=== PATIENT | male | born 1945 | race Caucasian/White ===

== ENCOUNTER 2019-11-11 16:50 | Emergency (ER) | payer BC ==
[~2019-11-11] VITALS: Ht 177.8 cm; Wt 52.2 kg
[~2019-11-11 16:50] MED LIST: ATEN-168 PO; LOVA40TA75 PO; SYN50 PO
[2019-11-11 16:55] VITALS: BP_SYST 95
[2019-11-11 17:25] LABS: BASOPHILS # (AUTO) 0.1 K/uL (0.0-0.2); BASOPHILS % (AUTO) 0.7 % (0.0-2.0); EOSINOPHILS % (AUTO) 0.1 % (0.0-4.0); HEMOGLOBIN 12.2 g/dL (14.0-18.0); LYMPHOCYTES # (AUTO) 1.1 K/uL (1.0-5.5); LYMPHOCYTES % (AUTO) 13.5 % (20.5-51.5); MEAN CORPUSCULAR HEMOGLOBIN 32 pg (27-31); MEAN CORPUSCULAR HGB CONC 34 % (32-36); MEAN CORPUSCULAR VOLUME 96 fL (79.0-98.0); MONOCYTES # (AUTO) 0.4 K/uL (0.0-1.0); MONOCYTES % (AUTO) 5.4 % (1.7-9.3); NEUTROPHILS # (AUTO) 6.5 K/uL (1.8-7.7); NEUTROPHILS % (AUTO) 80.3 % (40.0-70.0); PLATELET COUNT (AUTO) 233 K/uL (130-430); RED BLOOD CELL COUNT(AUTO) 3.76 MIL/uL (4.2-6.2); RED CELL DISTRIBUTION WIDTH 15.4 % (9.0-15.0); WHITE BLOOD COUNT (AUTO) 8.2 K/uL (4.8-10.8)
[2019-11-11 17:36] LABS: ALANINE AMINOTRANSFERASE 45 U/L (12-78); ALBUMIN 3.4 g/dL (3.4-4.8); ASPARTATE AMINOTRANSFERASE 38 U/L (10-37); CHLORIDE 108 mmol/L (98-107); CREATININE 1.54 mg/dL (0.55-1.30); GLUCOSE 113 mg/dL (70-99); POTASSIUM 3.8 mmol/L (3.5-5.1); SODIUM SERUM 141 mmol/L (136-145); TOTAL BILIRUBIN 0.4 mg/dL (0.0-1.0); UREA NITROGEN, BLOOD 37 mg/dL (8-21)
[2019-11-11 17:43] LABS: ANION GAP 11 (5-15)
[2019-11-11 18:35] VITALS: BP_SYST 108
== END 2019-11-11 18:36 | disposition home or self-care (01) ==
LOC: SED 16:50
DX: R53.1 Weakness (principal); I10 Essential (primary) hypertension; Z88.2 Allergy status to sulfonamides; Z95.828 Presence of other vascular implants and grafts
CPT/HCPCS: 36415; 80053; 82550-TC; 84484; 85025; 93005; 99284

== ENCOUNTER 2020-03-10 17:08 | Emergency (ER) | payer BC ==
[~2020-03-10] VITALS: Ht 177.8 cm; Wt 49.9 kg
[2020-03-10 17:19] VITALS: BP_SYST 159
--- NOTE | 2020-03-10 17:19 | NUR ---
PT BIB SPOUSE FOR MEDICAL CLEARANCE FOR CAROLYNRICHARD JESSICA. PT RESTING QUIETLY AWAITING CLEARANCE. FAMILY AT BEDSIDE.
--- NOTE | 2020-03-10 17:40 | NUR ---
ER at bedside examining patient.
[2020-03-10 17:44] LABS: BASOPHILS # (AUTO) 0.1 K/uL (0.0-0.2); EOSINOPHILS # (AUTO) 0.1 K/uL (0.0-0.4); EOSINOPHILS % (AUTO) 0.8 % (0.0-4.0); HEMATOCRIT 37.6 % (36-54); HEMOGLOBIN 12.5 g/dL (14.0-18.0); LYMPHOCYTES # (AUTO) 1.8 K/uL (1.0-5.5); LYMPHOCYTES % (AUTO) 24.9 % (20.5-51.5); MEAN CORPUSCULAR HEMOGLOBIN 33 pg (27-31); MEAN CORPUSCULAR HGB CONC 33 % (32-36); MEAN CORPUSCULAR VOLUME 101 fL (79.0-98.0); MONOCYTES # (AUTO) 0.6 K/uL (0.0-1.0); MONOCYTES % (AUTO) 7.4 % (1.7-9.3); NEUTROPHILS # (AUTO) 4.9 K/uL (1.8-7.7); NEUTROPHILS % (AUTO) 65.9 % (40.0-70.0); PLATELET COUNT (AUTO) 262 K/uL (130-430); RED BLOOD CELL COUNT(AUTO) 3.74 MIL/uL (4.2-6.2); RED CELL DISTRIBUTION WIDTH 14.7 % (9.0-15.0); WHITE BLOOD COUNT (AUTO) 7.4 K/uL (4.8-10.8)
--- NOTE | 2020-03-10 17:45 | NUR ---
MRSA AND COVID TEST OBTAINED AND SENT TO LAB.
--- NOTE | 2020-03-10 17:48 | NUR ---
Patient to ER bed 03 to gown for evaluation. Side rails up.
[2020-03-10 18:00] LABS: ANION GAP 12 (5-15); CALCIUM 9.3 mg/dL (8.4-11.0); CHLORIDE 105 mmol/L (98-107); CREATININE 1.05 mg/dL (0.55-1.30); GLUCOSE 89 mg/dL (70-99); POTASSIUM 3.3 mmol/L (3.5-5.1); SODIUM SERUM 141 mmol/L (136-145); UREA NITROGEN, BLOOD 22 mg/dL (8-21)
[2020-03-10 18:13] LABS: ALANINE AMINOTRANSFERASE 31 U/L (12-78); ALBUMIN 3.6 g/dL (3.4-4.8); ASPARTATE AMINOTRANSFERASE 36 U/L (10-37); TOTAL BILIRUBIN 0.4 mg/dL (0.0-1.0)
[2020-03-10 18:14] LABS: ACETAMINOPHEN < 1 ug/mL (1-30); ALCOHOL, BLOOD < 3 mg/dL (<10)
[2020-03-10 18:29] LABS: CHOLESTEROL 189 mg/dL (<200); HDL CHOLESTEROL 70 mg/dL (>45); LDL CHOLESTEROL 99 mg/dL (<100); TRIGLYCERIDES 109 mg/dL (30-150)
--- NOTE | 2020-03-10 18:59 | NUR ---
Pt in michell, confused, resting, VSS
[2020-03-10] MEDS ORDERED: LORazepam 2 MG/ML VIAL IVP ONE (20:30)
--- NOTE | 2020-03-10 20:30 | NUR ---
Pt resting in ED Bed, Mumbling to self.
[2020-03-10] MEDS ORDERED: HYDROcodone/ACETAMIN 5-325 MG TAB (NORCO/ VICODIN) PO PRN (21:15)
[2020-03-10] MEDS ORDERED: POTASSIUM CHLORIDE 20 MEQ TAB.PRT.SR PO ONE (21:30)
--- NOTE | 2020-03-10 23:00 | NUR ---
Pt resting in ED bed. Pt mumbling incoherently. Redirected with repetition.
--- NOTE | 2020-03-11 01:23 | NUR ---
Pt States he needs water, pt given glass of ice water at request.
--- NOTE | 2020-03-11 03:30 | NUR ---
Pt given new blanket at request. Pt resting comfortably
--- NOTE | 2020-03-11 04:00 | NUR ---
Pt awake, agitated, pulling at curtains and shouting. Attempted to Redirect patient without success.
--- NOTE | 2020-03-11 05:00 | NUR ---
Pt shouting at other patients. Requesting help to "Get out of here". Pt redirected.
--- NOTE | 2020-03-11 07:13 | NUR ---
report received from Iain BRAXTON. Pt is in stable condition. Will conrinue to monitor
[2020-03-11] MEDS ORDERED: LORazepam 2 MG/ML VIAL IVP ONE (09:15)
[2020-03-11] MEDS ORDERED: HALOPERIDOL LACTATE 5 MG/ML VIAL IVP ONE (09:15)
[2020-03-11] MEDS ORDERED: HALOPERIDOL LACTATE 5 MG/ML VIAL IM ONE (09:15)
[2020-03-11] MEDS ORDERED: LORazepam 2 MG/ML VIAL IM ONE (09:15)
--- NOTE | 2020-03-11 09:20 | NUR ---
pt is attempting to get out of bed. Reorientation provided.
[2020-03-11 10:21] VITALS: BP_SYST 118
--- NOTE | 2020-03-11 10:22 | NUR ---
Patient does not wish to proceed with medical care recommended by Dr. Ugarte. Patient's given information related to possible complications, up to and including , which could occur as a result of leaving hospital at this time. Patient's verbalizes understanding of risks involved leaving against medical advice. Patient's has signed AMA form.
== END 2020-03-11 10:22 | disposition left against medical advice (07) ==
LOC: SED 17:08 → SMU 19:31 → OBSVTOIN 19:31 → INTOOBSV 19:31 → UNDOADMOB 19:31 → UNDODISIN 03-11 10:22
DX: Z13.30 Encounter for screening examination for mental health and behavioral disorders, unspecified (principal); F03.90 Unspecified dementia, unspecified severity, without behavioral disturbance, psychotic disturbance, mood disturbance, and anxiety; I10 Essential (primary) hypertension; Z86.73 Personal history of transient ischemic attack (TIA), and cerebral infarction without residual deficits; Z88.2 Allergy status to sulfonamides; Z20.828 Contact with and (suspected) exposure to other viral communicable diseases
CPT/HCPCS: 36415; 80053; 80061; 83036; 85025; 87081; 93005; 96374; 99285; C9803; G0480; G0481; G0482; J2060; U0003

== ENCOUNTER 2020-06-27 14:24 | Emergency (ER) | payer BC, SELFPAY ==
[~2020-06-27] VITALS: Ht 165.1 cm; Wt 52.2 kg
[2020-06-27 14:25] VITALS: BP_SYST 157
--- NOTE | 2020-06-27 14:25 | NUR ---
BROUGHT IN BY [facility], PLACED IN BED #2 AND TRIAGED. REPORT GIVEN TO VICKIE
--- NOTE | 2020-06-27 14:30 | NUR ---
Pt brought to ER for hypoglycemia and gen weakness. Pt cold and clammy, altered level of consciousness, appears to be restless and agitated.
--- NOTE | 2020-06-27 14:30 | NUR ---
ER at bedside examining patient.
[2020-06-27 14:40] VITALS: BP_SYST 157
[2020-06-27] MEDS ORDERED: cefTRIAXone 1 GM IVPB PREMIX 50 ML IV ONE (14:45)
[2020-06-27] MEDS ORDERED: NS 1000 ML IV.SOLN IV ONE (14:45)
[2020-06-27] MEDS ORDERED: DEXTROSE 50% JECT 50 ML DISP.SYRIN IVP ONE (14:45)
--- NOTE | 2020-06-27 14:45 | NUR ---
# 20 gauge angiocath placed to LFA and R leg. Use of asceptic technique. Opsite placed over site. Blood return noted. Blood for lab drawn from site. Flushed with 10 cc of normal saline. No evidence of infiltration noted. Patient tolerated well.
--- NOTE | 2020-06-27 14:55 | NUR ---
amp of D50 for BS of 43.
--- NOTE | 2020-06-27 15:00 | NUR ---
Blood Sugar rechecked, resulted 142.
--- NOTE | 2020-06-27 15:01 | NUR ---
Pt became unresponsive at this time. Dr Tobar notified and all staff to bedside.
[2020-06-27] MEDS ORDERED: DEXTROSE 50% JECT 50 ML DISP.SYRIN ONE (15:02)
--- NOTE | 2020-06-27 15:08 | NUR ---
DNR status verified by son at bedside
--- NOTE | 2020-06-27 15:10 | NUR ---
MD Tobar pronounced pt at this time, after cardiac arrest
--- NOTE | 2020-06-27 15:21 | NUR ---
Spoke to [facility]
--- NOTE | 2020-06-27 15:23 | NUR ---
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
--- NOTE | 2020-06-27 15:31 | NUR ---
SPOKE WITH VINCENT AT [facility], WILL BE SENDING TRANSPORT.
--- NOTE | 2020-06-27 15:39 | NUR ---
DR RUSH EXCHANGE TO NOTIFY DR REGARDING PTS .
== END 2020-06-27 15:10 | disposition expired ==
LOC: SED 14:24
DX: E16.1 Other hypoglycemia (principal); R62.7 Adult failure to thrive; I10 Essential (primary) hypertension; Z86.73 Personal history of transient ischemic attack (TIA), and cerebral infarction without residual deficits; Z79.899 Other long term (current) drug therapy; Z88.2 Allergy status to sulfonamides
CPT/HCPCS: 82962; 96374; 99283; 99285